=== PATIENT | male | born 1990 | race Caucasian/White ===

== ENCOUNTER 2019-05-17 13:23 | Emergency (ER) | payer OTHER ==
[2019-05-17] MEDS ORDERED: Ondansetron PF 4 MG/2 ML Vial ONE (13:45)
[2019-05-17 13:50] LABS: #Basophils 0.1 thou/uL (0.0-0.2); #Eosinphils 0.2 thou/uL (0.0-0.7); #Lymphocytes 2.9 thou/uL (1.20-3.40); #Monocytes 0.6 thou/uL (0.11-0.59); %Basophils 0.9 % (0.0-1.0); %Eosinophils 2.8 % (0.0-10.0); %Lymphocytes 37.4 % (21.0-51.0); %Neutrophils 50.9 % (42.0-75.0); Hemoglobin 15.3 g/dL (14.0-18.0); Mean Corpuscular HGB CONC 33.5 g/dL (32.0-36.0); Mean Corpuscular Hemoglobin 28.7 pg (27.0-31.0); Mean Corpuscular Volume 85.7 fL (78.0-98.0); Mean Platelet Volume 7.1 fL (7.4-10.4); Platelet Count 339 thou/uL (130-400); RBC Distribution Width 11.8 % (11.5-14.5); Red Blood Cell (RBC) Count 5.32 mill/uL (4.70-6.10); White Blood Cell (WBC) Count 7.8 thou/uL (4.8-10.8)
[2019-05-17] MEDS ORDERED: Sodium Chloride 0.9% 1,000 ML ONE (13:51)
--- NOTE | 2019-05-17 14:05 | CT ---
EXAM: CT Abdomen Pelvis WO Con PROVIDED CLINICAL HISTORY: Left-sided flank pain COMPARISON: None FINDINGS: Visualized lung bases are free of significant opacity. No evidence for urinary tract calculi or hydronephrosis. The solid abdominal organs are suboptimally evaluated in the absence of IV contrast material but demonstrate an unremarkable unenhanced CT appearance. There is no bowel dilatation, inflammatory fat stranding, free fluid or free air apparent. The append ix appears normal. The osseous structures demonstrate no concerning osteoblastic or osteolytic lesions. IMPRESSION: No evidence for urinary tract calculi or hydronephrosis.
[2019-05-17 14:06] LABS: ALT (SGPT) 23 U/L (8-55); AST (SGOT) 18 U/L (5-34); Albumin 4.9 g/dL (3.5-5.0); Alkaline Phosphatase 58 U/L (40-150); Anion Gap 17 mmol/L (10-20); BUN (Urea Nitrogen) 8 mg/dL (8.9-20.6); Bilirubin, Total 0.4 mg/dL (0.2-1.2); CK (CPK) 232 U/L (30-200); Calc. Creatinine Clearance 0 mL/min (70-130); Calcium 9.9 mg/dL (7.8-10.44); Carbon Dioxide 23 mmol/L (22-29); Chloride 106 mmol/L (98-107); Estimated GFR-MDRD 69; Glucose 85 mg/dL (70-105); Lipase 23 U/L (8-78); Potassium 3.8 mmol/L (3.5-5.1); Protein, Total 7.9 g/dL (6.0-8.3); Sodium 142 mmol/L (136-145)
[2019-05-17 14:54] LABS: Bilirubin Negative (Negative); Blood, Urine Negative (Negative); Clarity Clear (Clear); Glucose, Urine (Dipstick) Negative (Negative); Leukocyte Negative (Negative); Nitrite Negative (Negative); Protein, Urine (Dipstick) Negative (Neg-Trace); Urobilinogen 0.2 mg/dL (Less than 2)
[2019-05-20 08:51] LABS: Follow-up Chemistry Comp? YES; Follow-up Result - Chemistry REPORT FAXED
== END 2019-05-17 15:50 ==
LOC: NAV ERS 13:23
DX: R33.9 Retention of urine, unspecified (principal); R10.9 Unspecified abdominal pain; R11.2 Nausea with vomiting, unspecified; F32.9 Major depressive disorder, single episode, unspecified; Z87.891 Personal history of nicotine dependence; Z79.899 Other long term (current) drug therapy
CPT/HCPCS: 36415; 74176; 80053; 81003; 82550; 83690; 84153; 85025; 96374; J2405; J7050

== ENCOUNTER 2019-08-29 06:47 | Emergency (ER) | payer OTHER ==
[2019-08-29] MEDS ORDERED: Ondansetron ODT 4 MG TAB ONE (07:16)
--- NOTE | 2019-08-29 07:48 | RAD ---
Acute abdominal series INDICATION: Right-sided abdominal pain with constipation COMPARISON: CT the abdomen and pelvis dated May 17, 2019 FINDINGS: CHEST: LUNGS: Clear. Cardiomediastinal silhouette: Normal. Pleural effusion or pneumothorax: Negative. Pneumoperitoneum: Negative. ABDOMEN: Bowel gas pattern: The bowel gas pattern is unobstructed. There is a moderate amount of retained stoo l within the colon. Abnormal calcifications: Small phleboliths are seen within the lower pelvis. Osseous structures: No acute osseous abnormality is demonstrated. Additional findings: None. IMPRESSION: 1. Moderate amount retained stool within the colon. 2. No acute cardiopulmonary abnormality.
[2019-08-29] MEDS ORDERED: Bisacodyl 10 MG SUPP ONE ×2 (08:17→08:19)
== END 2019-08-29 08:25 | disposition home or self-care (01) ==
LOC: NAV ERS 06:47
DX: K59.00 Constipation, unspecified (principal); R11.2 Nausea with vomiting, unspecified; F32.9 Major depressive disorder, single episode, unspecified; Z87.891 Personal history of nicotine dependence; Z79.899 Other long term (current) drug therapy
CPT/HCPCS: 74022; Q0162